=== PATIENT | male | born 1970 | race Caucasian/White ===

== ENCOUNTER 2021-09-17 10:28 | Emergency (ER) | payer OTHER ==
[~2021-09-17] VITALS: Ht 188 cm; Wt 90.7 kg
[2021-09-17] MEDS ORDERED: OXYC5 PO (14:55)
== END 2021-09-17 15:04 | disposition home or self-care (01) ==
LOC: ER 10:28
DX: S70.12XA Contusion of left thigh, initial encounter (principal); S83.242A Other tear of medial meniscus, current injury, left knee, initial encounter; X58.XXXA Exposure to other specified factors, initial encounter
CPT/HCPCS: 73552; 73721; 99284-25; A9270

== ENCOUNTER 2023-06-28 07:39 | Inpatient (IN) | payer OTHER ==
[~2023-06-28] VITALS: Ht 185.4 cm; Wt 107.5 kg
[~2023-06-28 07:39] MED LIST: OXYC5 PO
[2023-06-28 08:58] LABS: Base Excess Venous -2.9 mmol/L; Bicarbonate Venous 20.8 mmol/L (24.0-30.0); PCO2 Venous 50.1 mmHg (38-42); pH Blood Venous 7.28 (7.34-7.37)
[2023-06-28 09:07] LABS: BASOPHILS ABSOLUTE AUTO 0.11 K/mm3 (0.00-0.23); BASOPHILS PERCENT AUTO 1 % (0-2); EOSINOPHILS ABSOLUTE AUTO 0.08 K/mm3 (0.00-0.68); EOSINOPHILS PERCENT AUTO 1 % (0-6); Hematocrit 48.2 % (37.0-53.0); Hemoglobin 15.9 g/dL (13.5-17.5); IMMATURE GRAN ABSOLUTE AUTO 0.02 K/mm3 (0.00-0.10); IMMATURE GRAN PERCENT AUTO 0 % (0-1); LYMPHOCYTES ABSOLUTE AUTO 2.09 K/mm3 (0.84-5.20); LYMPHOCYTES PERCENT AUTO 20 % (21-46); MONOCYTES ABSOLUTE AUTO 1.06 K/mm3 (0.16-1.47); MONOCYTES PERCENT AUTO 10 % (4-13); Mean Corpuscular HGB 31.4 pg (26.0-34.0); Mean Corpuscular Volume 95 fL (80-100); Mean Platelet Volume 10.2 fL (9.1-12.4); NEUTROPHILS ABSOLUTE AUTO 6.91 K/mm3 (1.96-9.15); NEUTROPHILS PERCENT AUTO 67 % (41-73); Platelet Count 223 K/mm3 (150-400); RDW Coefficient Variation 14.4 % (11.7-14.2); RDW Standard Deviation 49.3 fL (35.1-46.3); Red Blood Cell Count 5.07 M/mm3 (4.30-5.90); White Blood Cell Count 10.27 K/mm3 (4.00-11.30)
[2023-06-28 09:15] LABS: International Normalized Ratio 1.63; Prothrombin Time Results 16.6 Sec (9.7-11.5)
[2023-06-28 09:48] LABS: Albumin/Globulin Ratio 0.8 (0.8-1.8); Bilirubin, Total 1.3 mg/dL (0.1-1.0); Bun/Creatinine Ratio 24.2 (12.0-20.0); Calcium, Blood 8.7 mg/dL (8.5-10.1); Creatinine, Blood 1.94 mg/dL (0.60-1.20); Globulin, Blood 3.8 g/dL (2.2-4.0); Potassium, Blood 6.1 mmol/L (3.5-5.5); Total Protein, Blood 6.8 g/dL (6.4-8.2)
[2023-06-28 10:48] LABS: Base Excess Venous -1.9 mmol/L; Bicarbonate Venous 21.1 mmol/L (24.0-30.0); PCO2 Venous 50.3 mmHg (38-42)
[2023-06-28 12:21] VITALS: BP 109/80
[2023-06-28 13:53] LABS: Albumin, Blood 3.3 g/dL (3.4-5.0); Anion Gap 3 mmol/L (6-16); Blood Urea Nitrogen 47 mg/dL (8-24); Bun/Creatinine Ratio 25.4 (12.0-20.0); CO2, Blood 27 mmol/L (21-32); Calcium, Blood 9.2 mg/dL (8.5-10.1); Chloride, Blood 106 mmol/L (98-108); Creatinine, Blood 1.85 mg/dL (0.60-1.20); Glomerular Filtration Rate 44 (60-); Glucose, Blood 94 mg/dL (70-99); Phosphorus, Blood 4.8 mg/dL (2.5-4.9); Potassium, Blood 4.9 mmol/L (3.5-5.5); Sodium, Blood 136 mmol/L (136-145); Uric Acid, Blood 12.3 mg/dL (3.5-7.2)
[2023-06-28 15:00] LABS: Base Excess Venous -2.3 mmol/L; Bicarbonate Venous 20.6 mmol/L (24.0-30.0); PCO2 Venous 51.4 mmHg (38-42)
[2023-06-28 15:01] LABS: pH Blood Venous 7.28 (7.34-7.37)
[2023-06-28 17:40] VITALS: BP 137/87
--- NOTE | 2023-06-28 18:00 | NUR ---
SHIFT SUMMARY S/P CHF EXACERBATION, PT SENT IN FROM [place] WITH REPORTS OF SOB, ADMITTED TO PCU. HE WAS ON 4L O2 VIA NC WHEN HE CAME UP TO THE FLOOR, A/O X4, ABLE TO TRANSFER HIMSELF OVER TO HIS BED BUT WAS A LITTLE UNSTEADY ON HIS FEET. DURING INITIAL ASSESSMENT HE BECAME WINDED QUICKLY AFTER GOING FROM SITTING AT THE EDGE OF THE BED TO LYING DOWN WHILE THE BED SCALE WEIGHED HIM AND BACK TO SITTING ON EDGE OF THE BED THOUGH HE WAS ABLE TO RECOVER QUICKLY, AFTER VBG CAME BACK HE WAS PLACED BACK ON BIPAP, HE REPORTS NOT LIKING THE BIPAP MACHINE ON BUT WAS EDUCATED ON WHAT IT IS DOING FOR HIM AND WHY IT IS IMPORTANT RIGHT NOW AND WAS ENCOURAGED TO KEEP IT IN PLACE, VBG TO BE RECHECKED AT 1900. HE WAS A LITTLE SOMNOLENT IN THE SECOND HALF OF THE SHIFT BUT WAS ABLE TO WAKE TO VERBAL STIMULI AND FOLLOW COMMANDS, PER ER MD NOTES THIS HAPPENED DOWN THERE WELL. 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 HE REPORTS HE HASN'T HAD A DRINK IN ABOUT A WEEK AND THAT WHEN HE DRINKS HE LOSES HIS INHIBITION AND THAT IS WHAT GOT HIS STARTED ON THE METH AND HEROIN. HE ALSO STATES THAT HE IS TRYING TO GET HELP WHICH IS WHY HE WENT TO [place]. NO OTHER EVENTS THIS SHIFT, CALL LIGHT IN REACH, WILL REPORT TO ANSHUL RETANA RN.
[2023-06-28 19:01] LABS: Base Excess Venous 0.4 mmol/L; Bicarbonate Venous 21.9 mmol/L (24.0-30.0); PCO2 Venous 52.7 mmHg (38-42); pH Blood Venous 7.31 (7.34-7.37)
[2023-06-28 20:26] VITALS: BP 116/71
[2023-06-29 00:20] VITALS: BP 104/83
[2023-06-29 03:23] VITALS: BP 101/90
[2023-06-29 03:51] LABS: BASOPHILS ABSOLUTE AUTO 0.09 K/mm3 (0.00-0.23); BASOPHILS PERCENT AUTO 1 % (0-2); EOSINOPHILS ABSOLUTE AUTO 0.16 K/mm3 (0.00-0.68); EOSINOPHILS PERCENT AUTO 2 % (0-6); Hematocrit 46.8 % (37.0-53.0); Hemoglobin 15.5 g/dL (13.5-17.5); IMMATURE GRAN ABSOLUTE AUTO 0.02 K/mm3 (0.00-0.10); IMMATURE GRAN PERCENT AUTO 0 % (0-1); LYMPHOCYTES ABSOLUTE AUTO 2.17 K/mm3 (0.84-5.20); LYMPHOCYTES PERCENT AUTO 25 % (21-46); MONOCYTES ABSOLUTE AUTO 0.95 K/mm3 (0.16-1.47); MONOCYTES PERCENT AUTO 11 % (4-13); Mean Corpuscular HGB 31.5 pg (26.0-34.0); Mean Corpuscular HGB Conc 33.1 g/dL (31.5-36.5); Mean Corpuscular Volume 95 fL (80-100); Mean Platelet Volume 10.2 fL (9.1-12.4); NEUTROPHILS ABSOLUTE AUTO 5.24 K/mm3 (1.96-9.15); NEUTROPHILS PERCENT AUTO 61 % (41-73); Platelet Count 201 K/mm3 (150-400); RDW Coefficient Variation 14.3 % (11.7-14.2); RDW Standard Deviation 49.5 fL (35.1-46.3); Red Blood Cell Count 4.92 M/mm3 (4.30-5.90); White Blood Cell Count 8.63 K/mm3 (4.00-11.30)
[2023-06-29 04:07] LABS: International Normalized Ratio 1.39; Prothrombin Time Results 14.3 Sec (9.7-11.5)
[2023-06-29 04:11] LABS: Albumin, Blood 2.8 g/dL (3.4-5.0); Albumin/Globulin Ratio 0.8 (0.8-1.8); Bilirubin, Direct 0.6 mg/dL (0.0-0.3); Bilirubin, Indirect 0.4 mg/dL (0.1-0.7); Bun/Creatinine Ratio 28.3 (12.0-20.0); Calcium, Blood 8.8 mg/dL (8.5-10.1); Creatinine, Blood 1.8 mg/dL (0.60-1.20); Globulin, Blood 3.5 g/dL (2.2-4.0); Potassium, Blood 4.6 mmol/L (3.5-5.5); Total Protein, Blood 6.3 g/dL (6.4-8.2)
--- NOTE | 2023-06-29 05:02 | NUR ---
SHIFT SUMMARY A/Ox3-4, BUT VERY SLEEPY AT TIMES. COOPERATIVE WITH CARE AND ABLE TO ANSWER QUESTIONS/MAKE HIS NEEDS KNOWN. 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 NO ACUTE EVENTS OVERNIGHT FOR PT WAS ABLE TO SLEEP T/O MOST OF THE NIGHT. CARDIAC, REMAINS IN AFIB RANGING 80-90 S WITH NO C/O CP OR PRESSURE T/O THE NIGHT. SBP HAS BEEN A LITTLE SOFT RANGING 100-110'S, MAP >65 T/O THE NIGHT. RESPIRATORY, MAINTAINS SPO2 >90% ON 4-6L VIA NC. TACHYPNEA/SOB NOTED WITH MINIMAL EXERTION, BUT PT RECOVERS WELL. PT WORE THE BIPAP 14/8 30% FiO2 FOR MOST OF THE NIGHT WITH ONLY FEW SHORT INTERMITTENT BREAKS. LS VERY DIMINISHED ON RIGHT SIDE RELATED TO PLEURAL EFFUSION. MD'S AWARE WITH POSSIBLE RIGHT SIDED THORACENTESIS IN THE AM. GI/, ABLE TO INDEPENDENTLY USE URINAL BEDSIDE. 24hr URINE COLLECTION STARTED ORDERED. CONTINUES TO PRODUCE DAVID COLORED URINE. ABLE TO AMBULATE TO BATHROOM VIA 1 STAFF ASSIST, BUT IS A LITTLE UNSTEADY ON HIS FEET. ASSESSED PT FOR RISKS OF ANY IGNITION SOURCES WELL BEHAVIORS FOR INCREASED RISKS OF FIRE DANGER. PT EDUCATED ON COMMON SOURCES OF IGNITION WELL NEED TO KEEP A SAFE ENVIRONMENT. PT VOICED UNDERSTANDING. NO NEW ORDERS AT THIS TIME, WILL REPORT TO ONCOMING RN. RAULITO CROFT OF THIS NOTE
--- NOTE | 2023-06-29 05:36 | NUR ---
UPDATE PT HAS HAD MINIMAL URINE OUTPUT SINCE START OF SHIFT. ENCOURAGED PT TO INCREASE FLUID INTAKE WELL EDUCATED ON IMPORTANCE OF STAYING HYDRATED FOR KIDNEY FUNCTION. THIS RN ATTMEPTED TO BLADDER SCAN PT, BUT HE REFUSED. AGAIN REITERATED NEED TO INCREASE FLUID INTAKE.
[2023-06-29 08:06] VITALS: BP 114/92
[2023-06-29 11:38] VITALS: BP 106/76
[2023-06-29] MEDS ORDERED: SPIRIVA RESPIMAT4 G3 INH (15:45)
[2023-06-29] MEDS ORDERED: Ventolin/Prove6.7 GM INH (15:46)
[2023-06-29] MEDS ORDERED: AMLODIPINE BESY10 MG PO (15:46)
[2023-06-29] MEDS ORDERED: CARVEDILOL12.5 MG PO (15:46)
[2023-06-29] MEDS ORDERED: FOLI1 PO (15:47)
[2023-06-29] MEDS ORDERED: ELIQUIS5 M3 PO (15:47)
[2023-06-29] MEDS ORDERED: FUROSEMIDE40 MG PO (15:47)
[2023-06-29] MEDS ORDERED: ATORVASTATIN CA20 MG PO (15:47)
[2023-06-29] MEDS ORDERED: METO100ER PO (15:48)
[2023-06-29] MEDS ORDERED: PANTOPRAZOLE SO40 M2 PO (15:49)
[2023-06-29] MEDS ORDERED: KLOR-CON 1010 ME9 PO (15:49)
[2023-06-29] MEDS ORDERED: SPIRONOLACTONE25 MG PO (15:51)
[2023-06-29] MEDS ORDERED: Hair, Skin & N1 EACH PO (15:52)
[2023-06-29] MEDS ORDERED: ATOR40TA PO (15:54)
[2023-06-29] MEDS ORDERED: VITAMIN B-1100 M1 PO (15:54)
--- NOTE | 2023-06-29 18:24 | NUR ---
SHIFT SUMMARY; ASSUMED CARE AT 0700. A/A/OX4, PLEASANT AND COOPERATIVE WITH CARE. USES URINAL AT BED SIDE, REPOSITIONS SELF NEEDED. 2L 02 VIA NC DURING SHIFT, VSS. NO ACUTE MEDICAL CHANGES, WILL CONTINUE TO MONITOR AND TREAT UNTIL CHANGE OF SHIFT.
[2023-06-29 19:40] VITALS: BP 115/85
[2023-06-29 23:05] VITALS: BP 123/96
[2023-06-30 03:12] VITALS: BP 132/93
[2023-06-30 03:38] LABS: Hematocrit 47.3 % (37.0-53.0); Hemoglobin 15.8 g/dL (13.5-17.5)
[2023-06-30 03:56] LABS: Albumin, Blood 3.1 g/dL (3.4-5.0); Anion Gap 7 mmol/L (6-16); Blood Urea Nitrogen 38 mg/dL (8-24); Bun/Creatinine Ratio 27.3 (12.0-20.0); CO2, Blood 26 mmol/L (21-32); Calcium, Blood 8.7 mg/dL (8.5-10.1); Chloride, Blood 105 mmol/L (98-108); Creatinine, Blood 1.39 mg/dL (0.60-1.20); Glomerular Filtration Rate 62 (60-); Glucose, Blood 94 mg/dL (70-99); Magnesium, Blood 1.8 mg/dL (1.6-2.4); Phosphorus, Blood 3.7 mg/dL (2.5-4.9); Potassium, Blood 4.1 mmol/L (3.5-5.5); Sodium, Blood 138 mmol/L (136-145)
--- NOTE | 2023-06-30 05:02 | NUR ---
SHIFT SUMMARY A/Ox3-4, BUT CAN BE SLEEPY AT TIMES. COOPERATIVE WITH CARE AND ABLE TO ANSWER QUESTIONS/MAKE HIS NEEDS KNOWN. PT CAN BE HARD TO AROUSE WHEN SLEEPING, BUT RESPONDS TO BOTH VERBAL AND TACTILE STIMULI. NO ACUTE EVENTS OVERNIGHT, BUT PT WAS NOT ABLE TO GET MUCH SLEEP LAST NIGHT. PRN MELOTIN ORDERED AND GIVEN PER EMAR WITH LITTLE EFFECT. CARDIAC, REMAINS IN AFIB RANGING 80-100'S WITH NO C/ O CP OR PRESSURE T/O THE NIGHT. SBP HAS IMPROVED FROM LAST SHIFT RANGING 110-130'S, MAP >65 T/O THE NIGHT. RESPIRATORY, MAINTAINS SPO2 >90% ON 2L VIA NC. TACHYPNEA/SOB NOTED WITH MINIMAL EXERTION, BUT PT RECOVERS WELL. PT WORE THE BIPAP 29/06 30% FiO2 FOR A GOOD PORTION OF THE NIGHT WITH INTERMITTENT BREAKS GIVEN. LS CONTINUE TO BE VERY DIMINISHED ON RIGHT SIDE RELATED TO PLEURAL EFFUSION. MD S AWARE WITH RIGHT SIDED THORACENTESIS SCHEDULED IN THE AM. PT HAS REMAINED NPO SINCE MDMike FOR SCHEDULED PROCEDURE. GI/, ABLE TO INDEPENDENTLY USE URINAL BEDSIDE. 24hr URINE COLLECTION HAD TO BE RESTARTED ON 0930 ON 06/29/23 DUE TO SAMPLE BEING ACCIDENTALLY EMPTIED. CONTINUES TO PRODUCE DAVID COLORED URINE WITH MORE URINE OUTPUT THIS SHIFT WHEN COMPARED TO LAST. ABLE TO AMBULATE TO BATHROOM VIA 1 STAFF ASSIST, BUT IS A LITTLE UNSTEADY ON HIS FEET. ASSESSED PT FOR RISKS OF ANY IGNITION SOURCES WELL BEHAVIORS FOR INCREASED RISKS OF FIRE DANGER. PT EDUCATED ON COMMON SOURCES OF IGNITION WELL NEED TO KEEP A SAFE ENVIRONMENT. PT VOICED UNDERSTANDING. NO NEW ORDERS AT THIS TIME, WILL REPORT TO ONCOMING RN. RAULITO CROFT OF THIS NOTE
[2023-06-30 07:31] VITALS: BP 129/102
[2023-06-30 11:00] LABS: Protein, Urine Quantitative 7.8 mg/dL (0.0-11.9)
--- NOTE | 2023-06-30 13:12 | NUR ---
SHIFT SUMMARY ASSUMED CARE AT 0700. A/A/OX4, SBA IN ROOM. SHOWER TAKEN TODAY AND TOLERATED WELL. RA WITH SATS MAINTAINING >92%. SAT IN CHAIR FOR MEALS, PLEASANT AND COOPERATIVE WITH CARE. PERSONAL BELONGINGS DELIVERED TO PT BY [employer], BAG OF HOME MEDS SENT TO PHARMACY. STATUS CHANGED TO MEDICAL, REPORT TO HOLLIE ON MEDICAL FLOOR TO ASSUME CARE.
[2023-06-30 16:54] VITALS: BP 138/112
--- NOTE | 2023-06-30 18:39 | NUR ---
PT ARRIVED TO MEDICAL FLOOR AROUND 1315. NO COMPLAINTS OR NEEDS SINCE ARRIVAL. NO C/O PAIN OR N/V. PT RESTING COMFORTABLY IN BED. CALL LIGHT IN REACH.
[2023-06-30 19:47] VITALS: BP 145/115
[2023-06-30 21:53] VITALS: BP 107/89
[2023-07-01 03:50] VITALS: BP 153/110
[2023-07-01 05:12] LABS: Hematocrit 47.6 % (37.0-53.0)
--- NOTE | 2023-07-01 05:42 | NUR ---
SHIFT SUMMARY: PATIENT A&OX4. PLEASANT AND COOPERATIVE c CARE. USES CALL LIGHT APPROPRIATELY AND ABLE TO MAKE NEEDS KNOWN. PATIENT DENIES CP/PRESSURE, SOB AND N/V. ON TELE, AFIB HR IN THE LOW 100'S BPM. WEARS BIPAP AT HS, RA c SPO2 95-100%. PATIENT REPORTS LOWER FRONT TOOTH ACHE, MEDICATED X1 c PO TYLENOL c GOOD EFFECT. HYPERTENSIVE. RECEIVED SCHEDULED MEDS PER EMAR. CONTINENCE OF BOWELS AND BLADDER, AMBULATES TO BATHROOM T/O SHIFT. SCHEDULED THORACENTESIS TODAY 07/01/23. CALL LIGHT IN REACH. PATIENT EDUCATED ON NON SMOKING POLICY, RISK OF INJURY AND IGNITION SOURCES WHEN O2 IN USE. PATIENT DENIES SMOKING AND VERBALIZED UNDERSTANDING.
[2023-07-01 05:45] LABS: Anion Gap 4 mmol/L (6-16); Blood Urea Nitrogen 29 mg/dL (8-24); Bun/Creatinine Ratio 25.4 (12.0-20.0); CO2, Blood 29 mmol/L (21-32); Calcium, Blood 8.2 mg/dL (8.5-10.1); Chloride, Blood 106 mmol/L (98-108); Creatinine, Blood 1.14 mg/dL (0.60-1.20); Glomerular Filtration Rate 78 (60-); Glucose, Blood 108 mg/dL (70-99); Magnesium, Blood 1.8 mg/dL (1.6-2.4); Phosphorus, Blood 2.8 mg/dL (2.5-4.9); Potassium, Blood 4.3 mmol/L (3.5-5.5); Sodium, Blood 139 mmol/L (136-145)
[2023-07-01 09:34] VITALS: BP 180/151
[2023-07-01 09:36] VITALS: BP 143/101
--- NOTE | 2023-07-01 13:25 | NUR ---
PT DOWN FOR THORACENTESIS.
--- NOTE | 2023-07-01 14:24 | NUR ---
PT RETURNED VIA W/C FROM HAVING THORACENTESIS DONE.
[2023-07-01 14:29] LABS: Automated BF RBC Count 0.002 M/mm3 (0-0); Automated BF WBC Count 0.273 K/mm3 (0-999)
[2023-07-01 14:33] LABS: Body Fluid WBC Count 273 /mm3 (0-999); RBC Count, Body Fluid 2000 /mm3 (0-0)
[2023-07-01 14:39] LABS: Lactate Dehydrogenase, Body Fl 124 U/L; Protein, Body Fluid 3.8 g/dL
--- NOTE | 2023-07-01 14:44 | NUR ---
PER IMAGING REPORT 1 L OF FLUID REMOVED FROM R PLEURAL SPACE. PT DENIES DIFFICULTY BREATHING, RESP EVEN & UNLABORED.
[2023-07-01 15:14] LABS: Appearance, Body Fluid Clear (Clear); Color, Body Fluid L Yellow (None-Yellow); Total Cell Count, Body Fluid 100
[2023-07-01 16:21] VITALS: BP 149/130
[2023-07-01 16:23] VITALS: BP 138/115
--- NOTE | 2023-07-01 17:56 | NUR ---
SHIFT SUMMARY A&O X 4. VSS. PT NPO, NGT TO LOW INT SXN WITH MINIMAL GREEN DRNG IN CANISTER. PT DENIES NAUSEA OR PAIN. MD HERE TO SEE PT, A SMALL BOWEL FOLLOW THROUGH IS ORDERED & SCHEDULED FOR TODAY BY . NGT CLAMPED PRIOR TO EXAM. EXAM DONE WHICH SHOWED NO BOWEL OBSTRUCTION. ORDERS RECEIVED TO DC NGT & TO START PT ON CLR LIQ DIET THEN ADV CADEN. PT PROVIDED WITH WATER, BROTH & JELLO. CADEN WELL. IS INDEPENDENT FOR BSC USE. IS PLEASANT & COOPERATIVE WITH ALL CARE.
--- NOTE | 2023-07-01 18:10 | NUR ---
SHIFT SUMMARY IS A&O X 4. PLEASANT & COOPERATIVE WITH ALL CARE. IS INDEPENDENT FOR RESTROOM USE. DENIES N/V, PAIN OR DYSPNEA. PT SCHEDULED FOR THORACENTESIS TODAY. THORA DONE & PER NOTES 1 L OF FLUID DRAINED FROM R PLEURAL SPACE. PT DENIES ANY DIFFICULTY WITH BREATHING. DC ORDERS ARE WRITTEN THOUGH IS HOMELESS, HAS A NON WORKING VAN IN [employer] AND NO WAY TO NOTIFY ANYONE (THEY HAVE NO PHONES & ARE ALSO HOMELESS) TO ARRANGE A RIDE. [employer]NA[employer] WILL NEED TO ARRANGE TRANSPORTATION PER [facility] [employer] TOMORROW. MD AWARE & PT AWARE.
[2023-07-01 19:53] VITALS: BP 113/100
--- NOTE | 2023-07-02 03:46 | NUR ---
SHIFT SUMMARY. SHIFT HAS BEEN MOSTLY UNREMARKABLE. PT IS AWAITING TRANSPORT FOR DISCHARGE BUT IS MEDICALLY STABLE FOR DISCHARGE WITH ORDERS ALREADY PLACED. NO COMPLAINTS OF PAIN THIS SHIFT. TELE ON THROUGH SHIFT. CALL EARLY IN SHIFT THAT PT WAS TACHY UP TO ~150s BUT PT WAS TRANSFERRING TO RESTROOM AT TIME. NO COMPLAINTS OF PAIN/SOB/PRESSURE,ETC. NO EVENTS SINCE. PT HAS NOT BEEN ABLE TO SLEEP MUCH AND IS VERY MUCH ANTICIPATING GETTING OUT OF HERE. AOX4, PLEASANT, COOPERATIVE WITH CARE. BED LOCKED IN LOWEST POSITION. CALL LIGHT LEFT WITHIN REACH.
[2023-07-02 04:33] VITALS: BP 132/106
[2023-07-02 06:09] LABS: Albumin, Blood 2.9 g/dL (3.4-5.0); Anion Gap 5 mmol/L (6-16); Blood Urea Nitrogen 22 mg/dL (8-24); CO2, Blood 29 mmol/L (21-32); Calcium, Blood 8.3 mg/dL (8.5-10.1); Chloride, Blood 104 mmol/L (98-108); Glomerular Filtration Rate 92 (60-); Glucose, Blood 91 mg/dL (70-99); Magnesium, Blood 1.6 mg/dL (1.6-2.4); Phosphorus, Blood 2.9 mg/dL (2.5-4.9); Potassium, Blood 3.5 mmol/L (3.5-5.5); Sodium, Blood 138 mmol/L (136-145)
[2023-07-02 07:42] VITALS: BP 139/113
[2023-07-02 07:56] VITALS: BP 130/103
[2023-07-02] MEDS ORDERED: BUME2 PO (11:15)
[2023-07-02] MEDS ORDERED: MELATONIN5 M1 PO (11:18)
== END 2023-07-02 13:00 | disposition home or self-care (01) | DRG 682 ==
LOC: ER 07:39 → PCU 11:08 → MEDS 06-30 13:45 → ENPENDDIS 07-01 18:30 → MEDS 07-02 13:00
PROVIDERS: Emergency Medicine; Internal Medicine Nephrology; ADMIT Family Medicine
PROC: 5A09357 Assistance with Respiratory Ventilation, Less than 24 Consecutive Hours, Continuous Positive Airway Pressure (ICD-10-PCS; principal; 2023-06-28)
PROC: 0W993ZZ Drainage of Right Pleural Cavity, Percutaneous Approach (ICD-10-PCS; 2023-07-01)
DX: N17.9 Acute kidney failure, unspecified (principal); I50.23 Acute on chronic systolic (congestive) heart failure; J96.01 Acute respiratory failure with hypoxia; J96.02 Acute respiratory failure with hypercapnia; E87.4 Mixed disorder of acid-base balance; J90 Pleural effusion, not elsewhere classified; E87.1 Hypo-osmolality and hyponatremia; I48.20 Chronic atrial fibrillation, unspecified; F10.10 Alcohol abuse, uncomplicated; F15.90 Other stimulant use, unspecified, uncomplicated; D63.1 Anemia in chronic kidney disease; K74.60 Unspecified cirrhosis of liver; B95.8 Unspecified staphylococcus as the cause of diseases classified elsewhere; N18.9 Chronic kidney disease, unspecified; E88.09 Other disorders of plasma-protein metabolism, not elsewhere classified; E79.0 Hyperuricemia without signs of inflammatory arthritis and tophaceous disease; E87.5 Hyperkalemia; Z87.891 Personal history of nicotine dependence; Z71.41 Alcohol abuse counseling and surveillance of alcoholic; Z71.6 Tobacco abuse counseling
CPT/HCPCS: 32555; 36415; 71045; 76770; 80053; 80069; 81050; 82248; 82550; 82803; 83615; 83690; 83735; 83880; 84100; 84156; 84157; 84300; 84484; 84550; 85014; 85018; 85025; 85610; 85730; 87070; 87075; 87186; 88108; 88305; 89051; 93005; 93010; 94640; 94660; 94664; 94760; 94762; 96365; 99285-25; A9270; C8929; J0612; Q9957